=== PATIENT | female | born 1990 | race Hispanic/Latino ===

== ENCOUNTER → 2022-03-17 | Outpatient (CLI) | payer MEDICAID, OTHER ==
[~2022-03-17] MED LIST: PREN-196 PO; PREN1TAB89 PO
== END | disposition home or self-care (01) ==
LOC: RAH 10:52
PROVIDERS: ATTEND Internal Medicine Gastroenterology
DX: R13.10 Dysphagia, unspecified (principal); R63.30 Feeding difficulties, unspecified
CPT/HCPCS: 74230; 92611

== ENCOUNTER 2024-05-20 09:14 | Emergency (ER) | payer MEDICAID ==
[~2024-05-20] VITALS: Ht 165.1 cm; Wt 64.4 kg
[2024-05-20 09:28] VITALS: BP 110/71; PULSE 72; RESP 16; TEMP 98.3; O2SAT 100
--- NOTE | 2024-05-20 09:45 | ERN ---
ED Note History of Present Illness Stated Complaint: PELVIC PAIN IN Chief Complaint: Abdominal Pain in Time Seen by MD: 09:22 Dictation: 33-year-old female presents to the ED for evaluation of pelvic pain onset 2 days ago. Patient reports chills, nausea, headache, but denies any vomiting or any other associated symptoms at this time. Patient had several positive tests at home and mentioned that she had IVF 10 days ago. Last menstrual period was on 05/01/2024. Allergies: Coded Allergies: No Known Allergies (Unverified Allergy, Unknown, 05/17/16) ceftriaxone (Unverified Allergy, Unknown, 08/31/16) tachycaria, muscle aches Home Meds Reported Medications Vit No.124/Iron/FA ( Vitamin Tablet) 1 Each Tablet, 1 EACH PO DAILY, TAB 08/31/16 Vit W-Ca,Fe,FA(<1 mg) ( Vitamins) 1 Each Tablet, 1 EACH PO DAILY, TAB 05/17/16 Past Medical History Past Medical History: No Pertinent History Surgical History: Tonsillectomy, Surgical History Other: BREAST IMPLANTS, NOSE SX, HERNIA LMP: May 01, 2024 : 5 Para: 4 Review of System Dictation Constitutional: Positive for chills,Negative for fever, and weight loss Eyes: Negative for injury, pain,redness, and discharge ENT: Negative for injury,pain or swelling Cardiovascular: Negative for chest pain, palpitations, and edema Respiratory: Negative for shortness of breath, cough, and wheezing, Abdomen/GI: Positive for pelvic pain nausea, Negative for abdominal pain, vomiting, diarrhea, and constipation Back: Negative for injury and pain : Negative for injury, bleeding and discharge MS/Extremity: Negative for injury and deformity Skin: Negative for rash, and discoloration Neuro: Positive for headache, Negative for weakness, numbness, tingling, and seizure Psych: Negative for suicide ideation, homicidal ideation, and hallucinations Initial Vital Sign VS Vital Signs Date Time Temp Pulse Resp B/P (MAP) Pulse Ox O2 Delivery O2 Flow Rate FiO2 05/20/24 09:17 98.2 81 16 119/74 100 Room Air 0 05/20/24 09:28 21 Physical Exam Dictation General: awake, alert, NAD Head/Face: Normocephalic, atraumatic Eyes: PERRL, EOMI, vision at baseline ENT: oral cavity clear, TMs clear, no signs of infection Neck: Trachea midline, supple, no nuchal rigidity Cardiovascular: RRR, normal S1/S2, No MRGs, no JVD Respiratory: CTAB, no respiratory distress, No rales or wheezes Abdomen: Soft, non-tender, non-distended, normal bowel sounds, no guarding or rebound. Skin: Warm, dry, normal turgor, no rash MS/Extremity: Pulses equal, no cyanosis, neurovascular intact, FROM Neuro: COAx4, GCS 15, strength 5/5, CN 2-12 intact, normal cerebellar exam, normal gait, Psych: Normal behavior, mood, and affect normal Results (Laboratory/Radiology) Laboratory/Radiology Laboratory Tests Test 05/20/24 09:25 05/20/24 09:49 Urine Color LIGHT-YELLOW (YELLOW) Urine Appearance CLEAR (CLEAR) Urine pH 6.5 (5.0-8.0) Urine Specific [place] 1.016 (1.001-1.031) Urine Protein NEGATIVE mg/dL (NEGATIVE) Urine Glucose (UA) NEGATIVE mg/dL (NEGATIVE) Urine Ketones NEGATIVE mg/dL (NEGATIVE) Urine Occult Blood NEGATIVE (NEGATIVE) Urine Nitrate NEGATIVE (NEGATIVE) Urine Bilirubin NEGATIVE mg/dL (NEGATIVE) Urine Urobilinogen 0.2 mg/dL (0.2-1.0) Urine Leukocyte Esterase NEGATIVE [place]/uL White Blood Count 4.3 K/uL (4.8-10.8) L Red Blood Count 4.22 MIL/uL (4.00-5.50) Hemoglobin 11.5 g/dL (12.0-16.0) L Hematocrit 35.6 % (36-48) L Mean Corpuscular Volume 84.4 fL (79-99) Mean Corpuscular Hemoglobin 27.3 pg (27.0-33.0) Mean Corpuscular Hemoglobin Concent 32.3 g/dL (32.0-36.0) Red Cell Distribution Width 15.5 % (11.0-15.5) Platelet Count 232 K/uL (130-400) Mean Platelet Volume 10.5 fL (7.5-10.5) Immature Granulocyte % (Auto) 0.7 % (0-1) Neutrophils (%) (Auto) 59.4 % (40.0-77.0) Lymphocytes (%) (Auto) 27.6 % (21.0-51.0) Monocytes (%) (Auto) 6.3 % (3.0-13.0) Eosinophils (%) (Auto) 5.3 % (0.0-8.0) Basophils (%) (Auto) 0.7 % (0.0-5.0) Neutrophils # (Auto) 2.6 K/uL (1.8-7.7) Lymphocytes # (Auto) 1.2 K/uL (1.0-4.8) Monocytes # (Auto) 0.3 K/uL (0.1-1.0) Eosinophils # (Auto) 0.23 K/uL (0.00-0.70) Basophils # (Auto) 0.03 K/uL (0.00-0.20) Absolute Immature Granulocyte (auto 0.03 K/uL (0-1) Nucleated Red Blood Cells 0.0 % (0.0-0.19) Sodium Level 135 mmol/L (136-145) L Potassium Level 4.6 mmol/L (3.5-5.1) Chloride Level 101 mmol/L (101-111) Carbon Dioxide Level 30 mmol/L (21-32) Blood Urea Nitrogen 11 mg/dL (7-18) Creatinine 0.8 mg/dL (0.5-1.0) Glomerular Filtration Rate Calc 98 mL/min (>90) Random Glucose 90 mg/dL (70-105) Total Calcium 8.6 mg/dL (8.5-10.1) Total Bilirubin 0.3 mg/dL (0.2-1.0) Direct Bilirubin < 0.1 mg/dL (0.0-0.3) Aspartate Amino Transf (AST/SGOT) 31 U/L (10-37) Alanine Aminotransferase (ALT/SGPT) 24 U/L (12-78) Alkaline Phosphatase 61 U/L (50-136) Total Protein 7.2 g/dL (6.0-8.3) Albumin 3.9 g/dL (3.5-5.0) Lipase 33 U/L (16-77) Human Chorionic Gonadotropin, Quant 4 mIU/mL (0-5) Labs Reviewed?: Yes ED Course ED Course Orders Procedure Category Date Status Time Hcg,Quantitative LAB 05/20/24 Complete 09:32 Cbc With Differential LAB 05/20/24 Complete 09:32 Hepatic Function Panel LAB 05/20/24 Complete :32 Basic Metabolic Panel LAB 05/20/24 Complete :32 Lipase LAB 05/20/24 Complete :32 Urinalysis Profile LAB 05/20/24 Complete 09:32 Us Pelvic Non-Ob Comp US 05/20/24 Taken 10:44 Vital Signs Date Time Temp Pulse Resp B/P (MAP) Pulse Ox O2 Delivery O2 Flow Rate FiO2 05/20/24 09:28 98.2 72 16 110/71 100 Room Air* 0 21 05/20/24 09:17 98.2 81 16 119/74 100 Room Air 0 Medical Decision Making MDM MDM: Differential diagnosis: Pelvic pain, , threatened AB, miscarriage Previous outside records reviewed: Old ER visits. Need for hospitalization: Patient does not meet criteria for hospitalization. Need for emergency major/minor surgery: No Patient's prior external medical records from other ER visits were reviewed by me as indicated. Prior testing and results from previous visits were reviewed. Prior tests were taken into account with medical decision making and resource utilization, independent historian/historians were used to obtain complete medical history. I independently interpreted the test that were performed, results were reviewed by me and considered findings on radiology if ordered. Medical management and examination interpretation discussions were had by me with other qualified healthcare professionals as indicated for the patient's care. DX & DISP Disposition: Discharge Departure Impression: Primary Impression: Pelvic pain Condition: Stable Referrals: ROLY ZELAYA MD (PCP) I have reviewed, & agreed with my scribe's, documentation. (Entered by Nomi Rasheed, acting as a scribe for Dr. Mays) I personally scribed for JUAN MAYS MD ([email or web address]) on 05/20/24 at 09:45. Electronically submitted by Nomi Rasheed ([email or web address]). I personally scribed for JUAN MAYS MD ([email or web address]) on 05/20/24 at 10:21. Electronically submitted by Nomi Rasheed ([email or web address]). I personally scribed for JUAN MAYS MD ([email or web address]) on 05/20/24 at 10:46. Electronically submitted by Nomi Rasheed ([email or web address]). JUAN MAYS MD May 20, 2024 09:45
[2024-05-20 09:57] LABS: BASOPHILS # (AUTO) 0.03 K/uL (0.00-0.20); BASOPHILS % (AUTO) 0.7 % (0.0-5.0); EOSINOPHILS # (AUTO) 0.23 K/uL (0.00-0.70); EOSINOPHILS % (AUTO) 5.3 % (0.0-8.0); HEMATOCRIT 35.6 % (36-48); IMMATURE GRANULOCYTE ABSOLUTE 0.03 K/uL (0-1); LYMPHOCYTES # (AUTO) 1.2 K/uL (1.0-4.8); LYMPHOCYTES % (AUTO) 27.6 % (21.0-51.0); MEAN CORPUSCULAR HEMOGLOBIN 27.3 pg (27.0-33.0); MEAN CORPUSCULAR HGB CONC 32.3 g/dL (32.0-36.0); MEAN CORPUSCULAR VOLUME 84.4 fL (79-99); MONOCYTES # (AUTO) 0.3 K/uL (0.1-1.0); MONOCYTES % (AUTO) 6.3 % (3.0-13.0); NEUTROPHILS # (AUTO) 2.6 K/uL (1.8-7.7); NEUTROPHILS % (AUTO) 59.4 % (40.0-77.0); PLATELET COUNT (AUTO) 232 K/uL (130-400); RED BLOOD CELL COUNT(AUTO) 4.22 MIL/uL (4.00-5.50); RED CELL DISTRIBUTION WIDTH 15.5 % (11.0-15.5); WHITE BLOOD COUNT (AUTO) 4.3 K/uL (4.8-10.8)
[2024-05-20 10:06] LABS: CARBON DIOXIDE 30 mmol/L (21-32); CHLORIDE 101 mmol/L (101-111); CREATININE 0.8 mg/dL (0.5-1.0); GLOMERULAR FILTR. RATE CALC 98 mL/min (>90); GLUCOSE,RANDOM 90 mg/dL (70-105); POTASSIUM 4.6 mmol/L (3.5-5.1); SODIUM SERUM 135 mmol/L (136-145); UREA NITROGEN, BLOOD 11 mg/dL (7-18)
[2024-05-20 10:15] LABS: ALANINE AMINOTRANSFERASE 24 U/L (12-78); ALBUMIN 3.9 g/dL (3.5-5.0); ASPARTATE AMINOTRANSFERASE 31 U/L (10-37); BILIRUBIN,TOTAL 0.3 mg/dL (0.2-1.0); HCG,QUANTITATIVE 4 mIU/mL (0-5); TOTAL PROTEIN, SERUM 7.2 g/dL (6.0-8.3)
[2024-05-20 10:16] LABS: BILIRUBIN,DIRECT < 0.1 mg/dL (0.0-0.3)
[2024-05-20 10:25] LABS: APPEARANCE,URINE CLEAR (CLEAR); BILIRUBIN,URINE NEGATIVE (NEGATIVE); COLOR,URINE LIGHT-YELLOW (YELLOW); GLUCOSE, URINE (UA) NEGATIVE (NEGATIVE); KETONES,URINE NEGATIVE (NEGATIVE); LEUKOCYTE ESTERASE ,URINE NEGATIVE Leu/uL (NEGATIVE); NITRATE,URINE NEGATIVE (NEGATIVE); OCCULT BLOOD,URINE NEGATIVE (NEGATIVE); PH,URINE 6.5 (5.0-8.0); PROTEIN,URINE NEGATIVE (NEGATIVE); UROBILINOGEN,URINE 0.2 mg/dL (0.2-1.0)
[2024-05-20 10:29] LABS: ADD UA MICROSCOPIC NO
--- NOTE | 2024-05-20 12:00 | HMCIMG ---
US PELVIC NON-OB COMP HISTORY: Pelvic pain COMPARISON: None TECHNIQUE: Transabdominal pelvic ultrasound study was performed. FINDINGS: The uterus measures 9.4 x 3.1 x 5.6 cm. The right ovary measures 4.5 x 3.6 x 3.2 cm. Left ovary is not well visualized. There is complex right ovarian cyst measuring 2.3 x 2.5 x 2.8 cm with possibilities such as ectopic not excluded. Beta-hCG correlation is recommended. No evidence of intrauterine is not seen this time. Endometrial thickness is 6 mm. No free fluid is seen in the cul-de-sac. IMPRESSION: 1. Findings as described above.
== END 2024-05-20 11:57 | disposition home or self-care (01) ==
LOC: EDH 09:14
DX: O26.891 Other specified pregnancy related conditions, first trimester (principal); R10.2 Pelvic and perineal pain; Z88.1 Allergy status to other antibiotic agents; Z90.89 Acquired absence of other organs
CPT/HCPCS: 36415; 76856; 80048; 80076; 81003; 83690; 84702; 85025; 99284

== ENCOUNTER 2024-05-27 20:30 | Emergency (ER) | payer MEDICAID ==
[~2024-05-27] VITALS: Ht 165.1 cm; Wt 64.4 kg
[2024-05-27 20:58] LABS: BASOPHILS # (AUTO) 0.03 K/uL (0.00-0.20); BASOPHILS % (AUTO) 0.3 % (0.0-5.0); EOSINOPHILS # (AUTO) 0.12 K/uL (0.00-0.70); EOSINOPHILS % (AUTO) 1.3 % (0.0-8.0); HEMATOCRIT 37.6 % (36-48); IMMATURE GRANULOCYTE ABSOLUTE 0.03 K/uL (0-1); LYMPHOCYTES # (AUTO) 1.5 K/uL (1.0-4.8); LYMPHOCYTES % (AUTO) 15.7 % (21.0-51.0); MEAN CORPUSCULAR HEMOGLOBIN 27.7 pg (27.0-33.0); MEAN CORPUSCULAR HGB CONC 33.2 g/dL (32.0-36.0); MEAN CORPUSCULAR VOLUME 83.4 fL (79-99); MONOCYTES # (AUTO) 0.3 K/uL (0.1-1.0); MONOCYTES % (AUTO) 3.1 % (3.0-13.0); NEUTROPHILS # (AUTO) 7.5 K/uL (1.8-7.7); NEUTROPHILS % (AUTO) 79.3 % (40.0-77.0); PLATELET COUNT (AUTO) 255 K/uL (130-400); RED BLOOD CELL COUNT(AUTO) 4.51 MIL/uL (4.00-5.50); RED CELL DISTRIBUTION WIDTH 15.6 % (11.0-15.5); WHITE BLOOD COUNT (AUTO) 9.4 K/uL (4.8-10.8)
[2024-05-27 21:05] LABS: CREATININE 0.8 mg/dL (0.5-1.0)
[2024-05-27 21:10] VITALS: BP 128/74; PULSE 77; RESP 20; TEMP 98; O2SAT 99
--- NOTE | 2024-05-27 21:40 | HMCIMG ---
US OB <14 WEEKS REASON: vaginal bleeding approx 5 weeks COMPARISON: None TECHNIQUE: Routine pelvic sonogram was performed. FINDINGS: Uterus is 8.8 x 4.7 x 5.3 cm. Endometrial thickness is 1.2 cm. There is no evidence of an intrauterine gestational sac there are several subcentimeter nabothian cysts on the cervix. There are small cysts or follicles in both ovaries, largest is on the right at 1.4 cm. There are no focal masses. There is no abnormal vascularity. There is no free fluid in the cul-de-sac. IMPRESSION: 1. No evidence of evident intrauterine gestation 2. Several small cysts on each ovary, there is no sonographic evidence of ectopic .
--- NOTE | 2024-05-27 22:04 | ERN ---
General Chief Complaint: OB<20 weeks gest. Stated Complaint: ABDOMINAL PAIN, 5WKS , OB < 20 WKS Time Seen by MD: 20:33 Time Seen by Midlevel: 20:33 Source: patient History of Present Illness Initial Comments Patient is a 33-year-old female presenting to the ER with light vaginal spotting after wiping. Patient states she noticed this prior to arrival. She reports having an artificial insemination performed 15 days ago. Her last hCG quant was performed three days ago and it was 33. She is followed by an OBGYN in [place]. She had an ultrasound done last week which revealed two sacs in the uterus. Patient has no other concerns at this time. Allergies: Coded Allergies: No Known Allergies (Unverified Allergy, Unknown, 05/17/16) ceftriaxone (Unverified Allergy, Unknown, 08/31/16) tachycaria, muscle aches Home Meds Reported Medications Vit No.124/Iron/FA ( Vitamin Tablet) 1 Each Tablet, 1 EACH PO DAILY, TAB 08/31/16 Vit W-Ca,Fe,FA(<1 mg) ( Vitamins) 1 Each Tablet, 1 EACH PO DAILY, TAB 05/17/16 Past Medical History Past Medical History: No Pertinent History Past Surgical History: Tonsillectomy, Surgical History Other: BREAST IMPLANTS, NOSE SX, HERNIA Female( History) : 5 Para: 4 ROS Dictation CONSTITUTIONAL: Negative except for HPI HEAD/FACE: Negative except for HPI EENT: Negative except for HPI RESPIRATORY: Negative except for HPI GASTROINTESTINAL/ABDOMINAL: Negative except for HPI GENITOURINARY: Negative except for HPI MUSCULOSKELETAL: Negative except for HPI INTEGUMENTARY: Negative except for HPI NEUROLOGICAL/PSYCH: Negative except for HPI HEMATOLOGIC/LYMPHATIC: Negative except for HPI All Systems Negative, Except as noted above. 13 point review of systems assessed and all negative except for above. Physical Exam Physical Exam Dictation Vital Signs reviewed General Appearance: Alert, oriented x 3, no acute distress, well developed, nourished. Head and Face: non-traumatic. Eyes: PERRL, pink conjunctivas, eyelid no trauma, anterior chamber with arcus senilis. Ears: Pinnas intact and no signs of trauma or erythema ear canals clear and no discharge TM no erythema Nose: No discharge, no bleeding. Oropharynx: Mouth normal, tongue pink, pharynx clear,no erythema, tonsils no exudates, no abscesses noted, mucous membrane moist Neck: Supple, non-tender, no thyromegaly, no masses, no JVD, no bruits Breast:Deferred Chest:No tenderness, no crepitus, no paradoxical movement, no retractions Lungs:Clear, well-ventilated, symmetric, no rales, no wheezing, no rhonchi, no stridor, good breath sounds bilaterally Heart: Regular rate, regular rhythm, no murmur, no gallops Vascular: no peripheral edema, Abdomen: Soft, positive bowel sounds, nondistended, no guarding, nontender, no rebound, no masses no hepatomegaly, no splenomegaly, no Benjamin's sign, no hernias. Rectal: Deferred Genital: Deferred Neurological: Normal speech, motor function intact, sensory function intact Musculoskeletal: Neck nontender, full range of motion, back nontender, full range of motion, Extremities: nontender, full range of motion Skin: Color pink, dry, no turgor, no rash, no lacerations, no abrasions, no contusions. Lymphatic: Deferred Results Laboratory and Microbiology Lab and Micro Result Laboratory Tests Test 05/27/24 20:50 White Blood Count 9.4 K/uL (4.8-10.8) Red Blood Count 4.51 MIL/uL (4.00-5.50) Hemoglobin 12.5 g/dL (12.0-16.0) Hematocrit 37.6 % (36-48) Mean Corpuscular Volume 83.4 fL (79-99) Mean Corpuscular Hemoglobin 27.7 pg (27.0-33.0) Mean Corpuscular Hemoglobin Concent 33.2 g/dL (32.0-36.0) Red Cell Distribution Width 15.6 % (11.0-15.5) H Platelet Count 255 K/uL (130-400) Mean Platelet Volume 10.2 fL (7.5-10.5) Immature Granulocyte % (Auto) 0.3 % (0-1) Neutrophils (%) (Auto) 79.3 % (40.0-77.0) H Lymphocytes (%) (Auto) 15.7 % (21.0-51.0) L Monocytes (%) (Auto) 3.1 % (3.0-13.0) Eosinophils (%) (Auto) 1.3 % (0.0-8.0) Basophils (%) (Auto) 0.3 % (0.0-5.0) Neutrophils # (Auto) 7.5 K/uL (1.8-7.7) Lymphocytes # (Auto) 1.5 K/uL (1.0-4.8) Monocytes # (Auto) 0.3 K/uL (0.1-1.0) Eosinophils # (Auto) 0.12 K/uL (0.00-0.70) Basophils # (Auto) 0.03 K/uL (0.00-0.20) Absolute Immature Granulocyte (auto 0.03 K/uL (0-1) Nucleated Red Blood Cells 0.0 % (0.0-0.19) Sodium Level 136 mmol/L (136-145) Potassium Level 4.0 mmol/L (3.5-5.1) Chloride Level 101 mmol/L (101-111) Carbon Dioxide Level 28 mmol/L (21-32) Blood Urea Nitrogen 13 mg/dL (7-18) Creatinine 0.8 mg/dL (0.5-1.0) Glomerular Filtration Rate Calc 98 mL/min (>90) Random Glucose 89 mg/dL (70-105) Total Calcium 9.4 mg/dL (8.5-10.1) Human Chorionic Gonadotropin, Quant 198 mIU/mL (0-5) H Labs Reviewed?: Yes MDM MDM: Patient is a 33-year-old female presenting to the ER with light vaginal spotting after wiping. Patient states she noticed this prior to arrival. She reports having an artificial insemination performed 15 days ago. Her last hCG quant was performed three days ago and it was 33. She is followed by an OBGYN in [place]. She had an ultrasound done last week which revealed two sacs in the uterus. Patient has no other concerns at this time. On physical examination patient is in no acute distress. Her abdominal examination is benign. Her hCG quant today is 188 which is trending upward. Her pelvic ultrasound does not show an intrauterine gestation however this may be related to a very early pregn irineo. There are no signs of ectopic . There was no free fluid in the cul-de-sac. Patient is not in any pain. Vital signs are stable. Patient is nontoxic appearing. Patient will be discharged home with supportive management. She was advised to follow up with your OBGYN as scheduled. She is to return to the ER for any new or worsening symptoms Differential diagnosis: Ectopic , 1st trimester , implantation bleeding There are no social concerns with this patient. Prescription drug management Prescriptions will include: None Medical management and examination interpretation discussions were had by me with other qualified healthcare professionals as indicated for the patient's care. ED Course Orders Procedure Category Date Status Time Basic Metabolic Panel LAB 05/27/24 Complete 20:33 Cbc With Differential LAB 05/27/24 Complete 20:33 Hcg,Quantitative LAB 05/27/24 Complete 20:33 *Nursing CPOE 05/27/24 Transmitted Communication: 20:33 Us Ob <14 Weeks US 05/27/24 Resulted 20:33 Vital Signs Date Time Temp Pulse Resp B/P (MAP) Pulse Ox O2 Delivery O2 Flow Rate FiO2 05/27/24 21:10 98.1 77 20 128/74 99 Room Air* 0 21 05/27/24 20:33 98.1 91 16 115/74 99 Room Air 0 [place] [address] [address] IMAGING REPORT Signed PATIENT: DANIELLE CHOI MR#: [id number] : 1990 SEX: F AGE: 33 LOCATION: ED ORDER 33 STATUS: REG ER REPORT#: [id number] SERVICE 32 REASON: vaginal bleeding approx 5 weeks ORDERING PHYSICIAN: ROLY PATEL PROCEDURE: OB <14 - US OB <14 WEEKS US OB <14 WEEKS REASON: vaginal bleeding approx 5 weeks COMPARISON: None TECHNIQUE: Routine pelvic sonogram was performed. FINDINGS: Uterus is 8.8 x 4.7 x 5.3 cm. Endometrial thickness is 1.2 cm. There is no evidence of an intrauterine gestational sac there are several subcentimeter nabothian cysts on the cervix. There are small cysts or follicles in both ovaries, largest is on the right at 1.4 cm. There are no focal masses. There is no abnormal vascularity. There is no free fluid in the cul-de-sac. IMPRESSION: 1. No evidence of evident intrauterine gestation 2. Several small cysts on each ovary, there is no sonographic evidence of ectopic . DICTATED BY: MODESTO YODER MD DATE: 05/27/242133 ELECTRONICALLY SIGNED BY: MODESTO YODER MD DATE: 05/27/242139 DX & DISP Disposition: Discharge Departure Impression: Primary Impression: Positive test Condition: Stable Additional Instructions: Your blood work today is unremarkable. Your hCG quant is 198. Your pelvic ultrasound does not show an intrauterine gestation however this may be related to a very early . There was no evidence of an ectopic . Follow up with your primary care doctor and OBGYN for repeat evaluation. Return to the ER for any new or worsening symptoms Referrals: ROLY ZELAYA MD (PCP) Time of Disposition: 22:03 I have reviewed the case, and I agree with, Diagnosis and Plan I performed the substantive portion of the visit. I have reviewed and personally made and approve the management plan that is documented in the note by myself or the ALEX. I acknowledge for responsibility for the patient's management plan. ROLY PATEL May 27, 2024 22:04
== END 2024-05-27 22:09 | disposition home or self-care (01) ==
LOC: EDH 20:30
DX: N83.201 Unspecified ovarian cyst, right side (principal); R10.2 Pelvic and perineal pain; Z88.1 Allergy status to other antibiotic agents; Z90.89 Acquired absence of other organs
CPT/HCPCS: 36415; 76801; 80048; 84702; 85025; 99284

== ENCOUNTER 2024-08-11 16:48 | Emergency (ER) | payer MEDICAID ==
[~2024-08-11] VITALS: Ht 167.6 cm; Wt 63.5 kg
--- NOTE | 2024-08-11 17:00 | NUR ---
REFER TO TRAUMA FLOW SHEET
[2024-08-11 17:27] LABS: ADD UA MICROSCOPIC YES; APPEARANCE,URINE CLEAR (CLEAR); BILIRUBIN,URINE NEGATIVE (NEGATIVE); COLOR,URINE COLORLESS (YELLOW); GLUCOSE, URINE (UA) NEGATIVE (NEGATIVE); KETONES,URINE NEGATIVE (NEGATIVE); LEUKOCYTE ESTERASE ,URINE NEGATIVE Leu/uL (NEGATIVE); NITRATE,URINE NEGATIVE (NEGATIVE); OCCULT BLOOD,URINE NEGATIVE (NEGATIVE); PH,URINE 6.5 (5.0-8.0); PROTEIN,URINE NEGATIVE (NEGATIVE); UROBILINOGEN,URINE 0.2 mg/dL (0.2-1.0)
[2024-08-11 17:29] LABS: BACTERIA,URINE RARE /HPF (None Seen); RBC,URINE 0-1 /HPF (0-1); SQUAMOUS EPITHELIAL CELL,UR FEW /HPF (0-2); WBC,URINE 0-1 /HPF (0-1)
--- NOTE | 2024-08-11 17:30 | ERN ---
ED Note History of Present Illness Stated Complaint: FALL Chief Complaint: Head, Face, Neck Trauma Time Seen by MD: 16:55 Dictation: Patient is a 34-year-old female who was brought to the emergency department after sustaining a fall from horse. Patient stated that she was trying to right to horse, but the animal became very agitated, patient fell in lose her consciousness. As per family member at bedside stated the patient lost consciousness for 10 -15 seconds. Also reported that the worse fail in the top of the patient. She complains of headache, left ankle pain. Allergies: Coded Allergies: No Known Allergies (Unverified Allergy, Unknown, 05/17/16) ceftriaxone (Unverified Allergy, Unknown, 08/31/16) tachycaria, muscle aches Home Meds Reported Medications Vit No.124/Iron/FA ( Vitamin Tablet) 1 Each Tablet, 1 EACH PO DAILY, TAB 08/31/16 Vit W-Ca,Fe,FA(<1 mg) ( Vitamins) 1 Each Tablet, 1 EACH PO DAILY, TAB 05/17/16 Past Medical History Past Medical History: No Pertinent History Surgical History: Other, Surgical History Other: RHINOPLASTY : 5 Para: 4 RN Note Reviewed/Agreed w/PFSH: Yes Review of System Dictation NEGATIVE EXCEPT PER HPI Constitutional: Negative for fever,chills, and weight loss Eyes: Negative for injury, pain,redness, and discharge ENT: Negative for injury,pain or swelling Cardiovascular: denies chest pain, palpitations, and edema Respiratory: Negative for shortness of breath, cough, and wheezing, Abdomen/GI: Negative for abdominal pain, nausea, vomiting, diarrhea, and constipation Back: Negative for injury and pain : Negative for injury, bleeding and discharge MS/Extremity: Left ankle pain Skin: Negative for rash, and discoloration Neuro: Negative for headache, weakness, numbness, tingling, and seizure Psych: Negative for suicide ideation, homicidal ideation, and hallucinations Head: Reports head pain Initial Vital Sign VS Vital Signs Date Time Temp Pulse Resp B/P (MAP) Pulse Ox O2 Delivery O2 Flow Rate FiO2 08/11/24 16:51 98.8 107 20 130/97 99 Room Air 0 Physical Exam Dictation General: awake, alert, NAD Head/Face: Normocephalic, atraumatic Eyes: PERRL, EOMI, vision at baseline ENT: oral cavity clear, TMs clear, no signs of infection Neck: Trachea midline, supple, no nuchal rigidity Cardiovascular: RRR, normal S1/S2, No MRGs, no JVD Respiratory: CTAB, no respiratory distress, No rales or wheezes Abdomen: Soft, non-tender, non-distended, normal bowel sounds, no guarding or rebound. Skin: Warm, dry, normal turgor, no rash less than 2 cm abrasion right forearm MS/Extremity: Pulses equal, no cyanosis, neurovascular intact, FROM Neuro: COAx4, GCS 15, strength 5/5, CN 2-12 intact, normal cerebellar exam, normal gait, minor swelling of the left ankle Psych: Normal behavior, mood, and affect normal Extremities-trace edema without any palpable cords, Homans sign is negative Results (Laboratory/Radiology) Laboratory/Radiology Laboratory Tests Test 08/11/24 17:16 Urine Color COLORLESS (YELLOW) Urine Appearance CLEAR (CLEAR) Urine pH 6.5 (5.0-8.0) Urine Specific [place] 1.003 (1.001-1.031) Urine Protein NEGATIVE mg/dL (NEGATIVE) Urine Glucose (UA) NEGATIVE mg/dL (NEGATIVE) Urine Ketones NEGATIVE mg/dL (NEGATIVE) Urine Occult Blood NEGATIVE (NEGATIVE) Urine Nitrate NEGATIVE (NEGATIVE) Urine Bilirubin NEGATIVE mg/dL (NEGATIVE) Urine Urobilinogen 0.2 mg/dL (0.2-1.0) Urine Leukocyte Esterase NEGATIVE Imelda/uL Urine RBC 0-1 /HPF (0-1) Urine WBC 0-1 /HPF (0-1) Urine Squamous Epithelial Cells FEW /HPF (0-2) Urine Bacteria RARE /HPF (None Seen) Urine HCG, Qualitative NEGATIVE (NEGATIVE) Labs Reviewed?: Yes ED Course ED Course Orders Procedure Category Date Status Time Ct Head/Brain W/O CT 08/11/24 Resulted Contrast 17:10 Ct Chest/Abd/Pelv W/O CT 08/11/24 Resulted Contrast 17:10 Urinalysis Profile LAB 08/11/24 Complete 17:10 ,Urine Test LAB 08/11/24 Complete 17:10 Ct Cervical Spine W/O CT 08/11/24 Resulted Contrast 17:10 Tibia/Fibula 2vws Lt RAD 08/11/24 Resulted 17:10 Ankle 2vws Lt RAD 08/11/24 Resulted 17:20 Cyclobenzaprine Hcl PHA 08/11/24 Complete (Cyclobenzaprine Hcl 19:00 Ibuprofen 600 Mg PHA 08/11/24 Complete Tablet (Motrin) 19:00 Acetaminophen 500mg PHA 08/11/24 Complete Tab (Tylenol 500mg T 19:00 Current Medications Medications (Trade) Dose Ordered Sig/Cinthia Route PRN Reason Start Time Stop Time Status Last Admin Dose Admin Acetaminophen (TYLenol 500MG TAB) 500 mg ONCE ONCE PO 08/11/24 19:00 08/11/24 19:01 DC Cyclobenzaprine HCl (Cyclobenzaprine HCl) 10 mg ONCE ONCE PO 08/11/24 19:00 08/11/24 19:01 DC Ibuprofen (moTRIN) 600 mg ONCE ONCE PO 08/11/24 19:00 08/11/24 19:01 DC Vital Signs Date Time Temp Pulse Resp B/P (MAP) Pulse Ox O2 Delivery O2 Flow Rate FiO2 08/11/24 16:51 98.8 107 20 130/97 99 Room Air 0 7:00 p.m. patient was signed out to me by a.m. physician. I independently evaluated her. This is a 34-year-old female who was riding a horse as a trial before buying and fell off and sustained closed head injury. She also fell on the left side with ankle pain. No seizure no blood thinners. Vital signs stable at heart rate of 107 blood pressure 130/97. She is alert awake oriented x4 and ambulating without any problems Imaging studies reviewed-CT scan of the head is negative, CT scan of the C-spine no evidence of any fracture, CT chest abdomen and pelvis only evidence of constipation and breast implants TBI fibula x-rays negative for any fracture ankle x-ray-mild soft tissue swelling. Urinalysis is unremarkable I updated the patient and spouse on all the available information and workup so far and plan to discharge her to follow up with her primary care physician Medical Decision Making MDM MDM: Differential diagnosis: Fall off of a horse, closed head injury, concussion, multi trauma with fractures dislocation Rationale: Tests considered and ordered secondary to shared decision making include: Previous outside records reviewed: Old ER visits. Risk of complication and/or morbidity or mortality of patient management: None Medications-Per medication reconciliation Need for hospitalization: Patient does not meet criteria for hospitalization. Need for emergency major/minor surgery: No There are no social concerns with this patient. Prescription drug management Prescriptions will include symptomatic care Patient's prior external medical records from other ER visits were reviewed by me as indicated. Prior testing and results from previous visits were reviewed. Prior tests were taken into account with medical decision making and resource utilization, independent historian/historians were used to obtain complete medical history. I independently interpreted the test that were performed, results were reviewed by me and considered findings on radiology if ordered. Medical management and examination interpretation discussions were had by me with other qualified healthcare professionals as indicated for the patient's care. Problem List Problem List: (1) Animal-rider injured by fall from or being thrown from horse in noncollision accident, initial encounter (2) Closed head injury (3) Left ankle sprain DX & DISP Disposition: Discharge Departure Impression: Primary Impression: Animal-rider injured by fall from or being thrown from horse in noncollision accident, initial encounter Additional Impressions: Closed head injury, Left ankle sprain Condition: Stable Additional Instructions: Patient and the caregiver have been informed of all the diagnostic tests and the imaging conducted during the today's visit to the emergency room and has verbalized understanding of the results I have personally reviewed and interpreted all diagnostic exams performed here in the ER today as well as the vital signs documented by the nursing staff. The patient is now being discharged to home and should follow up with the primary care physician or the specialist as directed by the ER staff. Follow-up with primary care provider in 1 to 2 days. Take medications as directed here in the emergency room. Okay to continue home medications unless otherwise discussed during your visit in the emergency room today. Return to [facility] emergency room if symptoms worsen or if there is no improvement. Call 911 if you need immediate assistance. Take Tylenol or Motrin [id number] as needed and if no contraindications are present. Increase oral hydration. A wound culture or urine culture was ordered here in the emergency room department please follow-up with primary care provider and advise them to get repeat ports from our facility. If you had any Edilberto wrap/splints that were applied here, please do not remove them until you see your primary care or specialty. Education on left ankle splint given. [id number] ibuprofen or Tylenol for pain relief. Patient did not want any narcotics or tramadol Referrals: ROLY ZELAYA MD (PCP) CRISTINA OLVERA MD Aug 11, 2024 17:30 MICHEL ESCOBEDO MD Aug 11, 2024 19:46
--- NOTE | 2024-08-11 18:35 | HMCIMG ---
ANKLE 2VWS LT CLINICAL HISTORY: fall from hose, pain COMPARISON: None TECHNIQUE: AP lateral and oblique images were obtained. FINDINGS: No obvious fracture or dislocation. No joint effusion. The soft tissues appear edematous over the lateral malleolus. No radiopaque foreign bodies. IMPRESSION: Mild soft tissue swelling
--- NOTE | 2024-08-11 18:37 | HMCIMG ---
TIBIA/FIBULA 2VWS LT CLINICAL HISTORY: EJECTED FROM A HORSE COMPARISON: None TECHNIQUE: AP and lateral images were obtained. FINDINGS: No obvious fracture or dislocation. No joint effusion. The soft tissues appear unremarkable. No radiopaque foreign bodies. IMPRESSION: No acute findings.
--- NOTE | 2024-08-11 18:39 | HMCIMG ---
CT HEAD/BRAIN W/O CONTRAST CLINICAL HISTORY: HEAD INJURY COMPARISON: None TECHNIQUE: Multiple sequential axial images of the head were obtained from the base of the skull through vertex. CT was performed with one or more of the following dose reduction techniques: automated exposure control, adjustment of the mA and/or kV according to patient size, or use of iterative reconstruction technique FINDINGS: The brain parenchyma and CSF spaces are unremarkable. The orbital contents, paranasal sinuses and mastoid air cells are within normal limits. The calvarium is intact. IMPRESSION: Normal study
--- NOTE | 2024-08-11 18:40 | HMCIMG ---
CT CERVICAL SPINE W/O CONTRAST CLINICAL HISTORY: HEAD INJURY COMPARISON: None TECHNIQUE: Sequential axial images of cervical spine without contrast and with sagittal and coronal reconstructions. CT was performed with one or more of the following dose reduction techniques: automated exposure control, adjustment of the mA and/or kV according to patient size, or use of iterative reconstruction technique FINDINGS: There is normal alignment of cervical vertebrae. There is no vertebral body height loss or fractures. The prevertebral soft tissue is unremarkable. The dens and periodontic space are within normal limits.The central canal and neural foramen are patent. IMPRESSION: Normal study
--- NOTE | 2024-08-11 19:01 | HMCIMG ---
CT CHEST/ABD/PELV W/O CONTRAST CLINICAL HISTORY: HEAD INJURY COMPARISON: None TECHNIQUE: Multiple sequential axial images of the chest abdomen and pelvis were obtained from the thoracic inlet through upper abdomen. CT was performed with one or more of the following dose reduction techniques: automated exposure control, adjustment of the mA and/or kV according to patient size, or use of iterative reconstruction technique FINDINGS: The lung parenchyma is unremarkable. The mediastinum is free of hematoma or pathologic lymphadenopathy. Incidental note is made of bilateral breast implants. The intra-abdominal pelvic solid and hollow viscera is unremarkable. There is a moderate amount of fecal material in the colon no identified bowel obstruction. There is no free air or free fluid. Uterus is unremarkable. The bony structures are intact. IMPRESSION: Constipation. There is no identified acute trauma. Incidental note is made of bilateral breast implants.
--- NOTE | 2024-08-11 19:45 | NUR ---
c-collar removed by Dr Schmitz
--- NOTE | 2024-08-11 19:50 | NUR ---
PATIENT HAS NO HOME MEDICATIONS
[2024-08-11] MEDS: ibuPROFEN 600 MG TABLET PO ONE (19:52)
[2024-08-11] MEDS: CYCLOBENZAPRINE HCL 10 MG TABLET PO ONE (19:52)
[2024-08-11] MEDS: ketOROlac 30MG VIAL (30MG/ML) IM ONE (19:53)
[2024-08-11] MEDS: acetaMINOPHEN 500 MG TABLET PO ONE (19:53)
--- NOTE | 2024-08-11 20:01 | NUR ---
patient was medicated, patient wants to leave now.
--- NOTE | 2024-08-11 20:04 | NUR ---
patient advised she was just medicated and needs to wait for 30 min to watch for possible reactions. patient did not want to wait. patient given discharge instructions and left with spouse
[2024-08-12 05:51] VITALS: BP 118/72; PULSE 84; RESP 16; TEMP 97.8; O2SAT 99
== END 2024-08-11 20:05 | disposition home or self-care (01) ==
LOC: EDH 16:48
DX: S93.402A Sprain of unspecified ligament of left ankle, initial encounter (principal); S09.90XA Unspecified injury of head, initial encounter; Z88.1 Allergy status to other antibiotic agents; Z98.82 Breast implant status; V80.010A Animal-rider injured by fall from or being thrown from horse in noncollision accident, initial encounter; Y93.52 Activity, horseback riding; Y92.89 Other specified places as the place of occurrence of the external cause; Y99.8 Other external cause status
CPT/HCPCS: 99285; 70450; 29515; 81001; 81025; 73600; 73590; 72125; 71250; 74176; 96372; J1885

== ENCOUNTER 2025-01-31 21:06 | Emergency (ER) | payer MEDICAID ==
[~2025-01-31] VITALS: Ht 165.1 cm; Wt 69.4 kg
--- NOTE | 2025-01-31 21:07 | NUR ---
UA CUP PROVIDED
[2025-01-31 22:21] LABS: IMMATURE GRANULOCYTE ABSOLUTE 0.01 K/uL (0-1); NUCLEATED RED BLOOD CELLS 0.0 % (0.0-0.19); PLATELET COUNT (AUTO) 248 K/uL (130-400); RED BLOOD CELL COUNT(AUTO) 4.48 MIL/uL (4.00-5.50); RED CELL DISTRIBUTION WIDTH 14.6 % (11.0-15.5); WHITE BLOOD COUNT (AUTO) 6.6 K/uL (4.8-10.8)
[2025-01-31 22:34] LABS: CREATININE 0.6 mg/dL (0.5-1.0); GLOMERULAR FILTR. RATE CALC 119.0 mL/min (>90); GLUCOSE,RANDOM 95.0 mg/dL (70-105); SODIUM SERUM 135.0 mmol/L (136-145); UREA NITROGEN, BLOOD 9.0 mg/dL (7-18)
[2025-01-31] MEDS: MAGNESIUM CITRATE 296 ML SOLUTION PO ONE (22:41)
[2025-01-31 22:57] LABS: HCG,QUANTITATIVE 48706.0 mIU/mL (0-5)
--- NOTE | 2025-01-31 23:06 | NUR ---
AMANDA SIBLEY AND AT BEDSIDE.
--- NOTE | 2025-01-31 23:08 | HMCIMG ---
EXAM: US Obstetrical, Complete <14 weeks. CLINICAL HISTORY: Vaginal bleeding during , approximately 5 weeks . TECHNIQUE: Transabdominal imaging of the maternal pelvis and a < 14-week gestation with image documentation. COMPARISON: None provided. FINDINGS: GESTATION: Gestational age by LMP: 5 weeks 6 days (LMP: 12/21/2024) Gestational sac (GS) measurement: 1.6 cm, corresponding to 6 weeks 5 days ??? 4 days [place]-rump length (CRL): 0.27 cm, corresponding to 5 weeks 6 days ??? 4 days heart rate (FHR): 118 bpm (limited views) Yolk sac not seen A gestational sac was identified in the mid-uterine segment. UTERUS: The uterus measures 9.2 x 4.9 x 4.3 cm No myometrial mass ENDOMETRIUM: Normal CERVIX: Closed. Unremarkable RIGHT OVARY: The right ovary measures 2.8 x 1.9 x 2.8 cm, unremarkable LEFT OVARY: The left ovary measures 2.3 x 1.0 x 1.6 cm, unremarkable FREE FLUID: Trace-free fluid noted in the cul-de-sac IMPRESSION: Single viable intrauterine at approximately 5 weeks 6 days by CRL. The gestational sac is present in the mid-uterine segment. heart activity present. Yolk sac not visualized. No acute abnormality. /[place]
[2025-01-31 23:15] LABS: APPEARANCE,URINE CLEAR (CLEAR); GLUCOSE, URINE (UA) NEGATIVE (NEGATIVE); LEUKOCYTE ESTERASE ,URINE NEGATIVE Leu/uL (NEGATIVE); NITRATE,URINE NEGATIVE (NEGATIVE); OCCULT BLOOD,URINE MODERATE (NEGATIVE)
[2025-01-31] MEDS ORDERED: DOCU-116 PO (23:16)
[2025-01-31 23:17] LABS: ADD UA MICROSCOPIC YES
--- NOTE | 2025-01-31 23:17 | ERN ---
General Chief Complaint: OB<20 weeks gest. Stated Complaint: LEG HEAVINESS, CONSTIPATION Time Seen by MD: 21:11 Time Seen by Midlevel: 21:11 Source: patient History of Present Illness Allergies: Coded Allergies: No Known Allergies (Unverified Allergy, Unknown, 05/17/16) ceftriaxone (Unverified Allergy, Unknown, 08/31/16) tachycaria, muscle aches Home Meds Reported Medications Vit No.124/Iron/FA ( Vitamin Tablet) 1 Each Tablet, 1 EACH PO DAILY, TAB 08/31/16 Vit W-Ca,Fe,FA(<1 mg) ( Vitamins) 1 Each Tablet, 1 EACH PO MICHAEL Y, TAB 05/17/16 Past Medical History Past Medical History: No Pertinent History Past Surgical History: Other, Surgical History Other: RHINOPLASTY Female( History) LMP: Dec 21, 2024 : 5 Para: 4 Results Laboratory and Microbiology Lab and Micro Result Laboratory Tests Test 01/31/25 22:13 White Blood Count 6.6 K/uL (4.8-10.8) Red Blood Count 4.48 MIL/uL (4.00-5.50) Hemoglobin 12.4 g/dL (12.0-16.0) Hematocrit 38.0 % (36-48) Mean Corpuscular Volume 84.8 fL (79-99) Mean Corpuscular Hemoglobin 27.7 pg (27.0-33.0) Mean Corpuscular Hemoglobin Concent 32.6 g/dL (32.0-36.0) Red Cell Distribution Width 14.6 % (11.0-15.5) Platelet Count 248 K/uL (130-400) Mean Platelet Volume 9.5 fL (7.5-10.5) Immature Granulocyte % (Auto) 0.2 % (0-1) Neutrophils (%) (Auto) 65.5 % (40.0-77.0) Lymphocytes (%) (Auto) 22.4 % (21.0-51.0) Monocytes (%) (Auto) 5.3 % (3.0-13.0) Eosinophils (%) (Auto) 5.8 % (0.0-8.0) Basophils (%) (Auto) 0.8 % (0.0-5.0) Neutrophils # (Auto) 4.3 K/uL (1.8-7.7) Lymphocytes # (Auto) 1.5 K/uL (1.0-4.8) Monocytes # (Auto) 0.4 K/uL (0.1-1.0) Eosinophils # (Auto) 0.38 K/uL (0.00-0.70) Basophils # (Auto) 0.05 K/uL (0.00-0.20) Absolute Immature Granulocyte (auto 0.01 K/uL (0-1) Nucleated Red Blood Cells 0.0 % (0.0-0.19) Sodium Level 135 mmol/L (136-145) L Potassium Level 3.1 mmol/L (3.5-5.1) L Chloride Level 98 mmol/L (101-111) L Carbon Dioxide Level 29 mmol/L (21-32) Blood Urea Nitrogen 9 mg/dL (7-18) Creatinine 0.6 mg/dL (0.5-1.0) Glomerular Filtration Rate Calc 119 mL/min (>90) Random Glucose 95 mg/dL (70-105) Total Calcium 9.4 mg/dL (8.5-10.1) Human Chorionic Gonadotropin, Quant 30027 mIU/mL (0-5) H ED Course Orders Procedure Category Date Status Time Cbc With Differential LAB 01/31/25 Complete 21:44 Basic Metabolic Panel LAB 01/31/25 Complete 21:44 Hcg,Quantitative LAB 01/31/25 Complete 21:44 Urinalysis Profile LAB 01/31/25 In Process 21:44 Us Ob <14 Weeks US 01/31/25 Taken 21:44 Magnesium Citrate PHA 01/31/25 Complete (Magnesium Citrate) 23:00 Potassium Bicarb/Cit PHA 01/31/25 Complete Ac 25meq (K-Lyte Ta 23:00 Current Medications Medications (Trade) Dose Ordered Sig/Cinthia Route PRN Reason Start Time Stop Time Status Last Admin Dose Admin Magnesium Citrate (Magnesium Citrate) 296 ml ONCE ONCE PO 01/31/25 23:00 01/31/25 23:01 DC 01/31/25 22:41 Potassium Bicarbonate (K-Lyte Tablet Eff 25 Meq Tablet.eff) 50 meq ONCE ONCE PO 01/31/25 23:00 01/31/25 23:01 DC 01/31/25 22:56 Vital Signs Date Time Temp Pulse Resp B/P (MAP) Pulse Ox O2 Delivery O2 Flow Rate FiO2 01/31/25 21:33 98.1 90 16 125/82 98 Room Air* 0 21 01/31/25 21:07 98.2 92 20 128/85 99 Room Air DX & DISP Disposition: Discharge Departure Impression: Primary Impression: First trimester Additional Impression: Hypokalemia Condition: Stable Scripts Docusate Sodium (Colace) 100 Mg Capsule 100 MG PO TID for constipation, #30 CAP 0 Refills Prov: ROLY PATEL 01/31/25 Additional Instructions: Your potassium level today was 3.1. [place] [address]. The remainder of your blood work is unremarkable. Your pelvic ultrasound reveals a gestational sac of five weeks and six days with positive heart tones of 118 beats per minute. Please follow up with your OBGYN as scheduled. Return to the ER for any new or worsening symptoms. Referrals: ROLY ZELAYA MD (PCP) I have reviewed the case, and I agree with, Diagnosis and Plan I performed the substantive portion of the visit. I have reviewed and personally made and approve the management plan that is documented in the note by myself or the ALEX. I acknowledge for responsibility for the patient's management plan. ROLY PATEL Jan 31, 2025 23:17
[2025-01-31 23:19] LABS: SQUAMOUS EPITHELIAL CELL,UR FEW /HPF (0-2)
[2025-01-31 23:29] VITALS: BP 125/79; PULSE 88; RESP 18; TEMP 98.3; O2SAT 98
== END 2025-01-31 23:30 | disposition home or self-care (01) ==
LOC: EDH 21:06
DX: O99.281 Endocrine, nutritional and metabolic diseases complicating pregnancy, first trimester (principal); E87.6 Hypokalemia; R10.2 Pelvic and perineal pain; Z3A.01 Less than 8 weeks gestation of pregnancy; Z88.1 Allergy status to other antibiotic agents
CPT/HCPCS: 36415; 76801; 80048; 81001; 84702; 85025; 99284

== ENCOUNTER 2025-02-07 16:43 | Emergency (ER) | payer MEDICAID ==
[~2025-02-07] VITALS: Ht 165.1 cm; Wt 68.3 kg
[~2025-02-07 16:43] MED LIST changes: +DOCU-116 PO
--- NOTE | 2025-02-07 19:06 | NUR ---
PT CARE ASSUMED AT THIS TIME
[2025-02-07 19:46] LABS: RAPID GROUP A STREP negative (NEGATIVE)
[2025-02-07 19:58] LABS: INFLUENZA TYPE A Negative For Type A (NEGATIVE); INFLUENZA TYPE B Negative For Type B (NEGATIVE)
[2025-02-07 20:02] LABS: COVID19 (SARS ANTIGEN RAPID) PRESUMPTIVE NEGATIVE (NEGATIVE)
--- NOTE | 2025-02-07 20:10 | ERN ---
ED Note History of Present Illness Stated Complaint: ALLERGIC REACTION Chief Complaint: Allergic Reaction Time Seen by MD: 16:48 Time Seen by Midlevel: 16:48 Dictation: The patient is a 34-year-old female with no significant past medical history who reports to be seven weeks who presents to the emergency department with complaints of allergic reaction to progesterone. Patient reports she took it last night and she felt like she was short of breath and her throat was closing. Patient also reports she has nasal congestion. Denies any fevers, denies any abdominal pain or vaginal bleeding. Reports she had similar symptoms the 1st time she took progesterone. Reports her is architect gave it to her because she previously had vaginal bleeding Allergies: Coded Allergies: No Known Allergies (Unverified Allergy, Unknown, 05/17/16) ceftriaxone (Unverified Allergy, Unknown, 08/31/16) tachycaria, muscle aches Home Meds Active Scripts Docusate Sodium (Colace) 100 Mg Capsule, 100 MG PO TID for constipation, #30 CAP 0 Refills Prov:ROLY PATEL 01/31/25 Reported Medications Vit No.124/Iron/FA ( Vitamin Tablet) 1 Each Tablet, 1 EACH PO DAILY, TAB 08/31/16 Vit W-Ca,Fe,FA(<1 mg) ( Vitamins) 1 Each Tablet, 1 EACH PO DAILY, TAB 05/17/16 Past Medical History Past Medical History: No Pertinent History Additional Past Medical Hx: denies pmhx Surgical History: Other, Surgical History Other: breast augmentation, rhinoplasty : 5 Para: 4 RN Note Reviewed/Agreed w/PFSH: Yes Review of System Dictation Constitutional: Negative for fever,chills, and weight loss Eyes: Negative for injury, pain,redness, and discharge ENT: Negative for injury,pain or swelling positive for sore throat Cardiovascular: Negative for chest pain, palpitations, and edema Respiratory: Negative for cough, and wheezing, Abdomen/GI: Negative for abdominal pain, nausea, vomiting, diarrhea, and constipation Back: Negative for injury and pain : Negative for injury, bleeding and discharge MS/Extremity: Negative for injury and deformity Skin: Negative for rash, and discoloration Neuro: Negative for headache, weakness, numbness, tingling, and seizure Psych: Negative for suicide ideation, homicidal ideation, and hallucinations Initial Vital Sign VS Vital Signs Date Time Temp Pulse Resp B/P (MAP) Pulse Ox O2 Delivery O2 Flow Rate FiO2 02/07/25 16:44 98.2 87 16 103/60 98 Room Air 0 02/07/25 16:49 21 Physical Exam Dictation Vital Signs reviewed General Appearance: Alert, oriented x 3, no acute distress, well developed, nourished. Head and Face: non-traumatic. Eyes: PERRL, pink conjunctivas, eyelid no trauma, anterior chamber with arcus se nilis. Ears: Pinnas intact and no signs of trauma or erythema ear canals clear and no discharge TM no erythema Nose: No discharge, no bleeding. Oropharynx: Mouth normal, tongue pink. pharynx clear,no erythema, tonsils no exudates, no abscesses noted, mucous membrane moist Neck: Supple, non-tender, no thyromegaly, no masses, no JVD, no bruits Breast:Deferred Chest:No tenderness, no crepitus, no paradoxical movement, no retractions Lungs:Clear, well-ventilated, symmetric, no rales, no wheezing, no rhonchi, no stridor, good breath sounds bilaterally Heart: Regular rate, regular rhythm, no murmur, no gallops Vascular: no peripheral edema, Abdomen: Soft, positive bowel sounds, nondistended, no guarding, nontender, no rebound, no masses no hepatomegaly, no splenomegaly, no Benjamin's sign, no hernias. Rectal: Deferred Genital: Deferred Neurological: Normal speech, motor function intact, sensory function intact Musculoskeletal: Neck nontender, full range of motion, back nontender, full range of motion, Extremities: nontender, full range of motion Skin: Color pink, dry, no turgor, no rash, no lacerations, no abrasions, no contusions. Lymphatic: Deferred Results (Laboratory/Radiology) Laboratory/Radiology Laboratory Tests Test 02/07/25 19:22 Influenza Type A Antigen Negative For Type A Influenza Type B Antigen Negative For Type B SARS-CoV-2 Antigen (Rapid) PRESUMPTIVE NEGATIVE Group A Streptococcus Rapid negative (NEGATIVE) Labs Reviewed?: Yes ED Course ED Course Orders Procedure Category Date Status Time Covid19 (Sars Antigen LAB 02/07/25 Complete Rapid) 17:07 Influenza Type A & B, LAB 02/07/25 Complete Rapid 17:07 Rapid (Group A Strep) LAB 02/07/25 Complete 17:07 Vital Signs Date Time Temp Pulse Resp B/P (MAP) Pulse Ox O2 Delivery O2 Flow Rate FiO2 02/07/25 16:49 98.2 87 16 103/60 98 Room Air* 0 21 02/07/25 16:44 98.2 87 16 103/60 98 Room Air 0 Medical Decision Making MDM The patient is a 34-year-old female with no significant past medical history who reports to be seven weeks who presents to the emergency department with complaints of allergic reaction to progesterone. Patient reports she took it last night and she felt like she was short of breath and her throat was closing. Patient also reports she has nasal congestion. Denies any fevers, denies any abdominal pain or vaginal bleeding. Reports she had similar symptoms the 1st time she took progesterone. Reports her is architect gave it to her because she previously had vaginal bleeding Serology was negative. Patient reported allergic reaction yesterday but reports she took cetirizine and symptoms improved. On physical exam patient is in no acute distress, nontoxic appearance, stable vital signs, clear lung sounds, no rash or swelling noted. Patient will be discharged to follow up with OBGYN. Differential diagnosis: Allergic reaction, upper respiratory infection, strep throat Need for hospitalization: Patient does not meet criteria for hospitalization. There are no social concerns with this patient. DX & DISP Disposition: Discharge Departure Impression: Primary Impression: Allergic reaction Condition: Stable Additional Instructions: Your laboratory was negative. Please follow up with your primary doctor in 1-2 days. Follow up with the OBGYN. If anything worsens please return to ER. FOLLOW-UP WITH PRIMARY CARE PROVIDER IN 1 TO 2 DAYS. TAKE MEDICATIONS DIRECTED HERE IN THE EMERGENCY ROOM. OKAY TO CONTINUE HOME MEDICATIONS UNLESS OTHERWISE DISCUSSED DURING YOUR VISIT IN THE EMERGENCY ROOM TODAY. RETURN TO YOUR NEAREST EMERGENCY ROOM IF SYMPTOMS WORSEN OR IF THERE IS NO IMPROVEMENT. CALL 911 IF YOU NEED IMMEDIATE ASSISTANCE. TAKE TYLENOL [id number] NEEDED AND IF NO CONTRAINDICATIONS ARE PRESENT. INCREASE ORAL HYDRATION. A WOUND CULTURE OR URINE CULTURE WAS ORDERED HERE IN THE EMERGENCY ROOM DEPARTMENT PLEASE FOLLOW-UP WITH PRIMARY CARE PROVIDER AND ADVISE THEM TO GET REPEAT PORTS FROM OUR FACILITY. IF YOU HAD ANY JENNIE WRAP/SPLINTS THAT WERE APPLIED HERE, PLEASE DO NOT REMOVE THEM UNTIL YOU SEE YOUR PRIMARY CARE OR SPECIALTY. Referrals: ELVIS ZELAYA MD (PCP) Time of Disposition: 20:09 I have reviewed the case, and I agree with, Diagnosis and Plan BRENDAN RODRIGUEZ [facility] Feb 07, 2025 20:10
[2025-02-07 20:24] VITALS: BP 105/69; PULSE 78; RESP 16; TEMP 98.2; O2SAT 100
== END 2025-02-07 20:25 | disposition home or self-care (01) ==
LOC: EDH 16:43
DX: O26.891 Other specified pregnancy related conditions, first trimester (principal); T78.40XA Allergy, unspecified, initial encounter; Z88.1 Allergy status to other antibiotic agents; Z3A.01 Less than 8 weeks gestation of pregnancy; Z20.822 Contact with and (suspected) exposure to COVID-19; Z79.899 Other long term (current) drug therapy; X58.XXXA Exposure to other specified factors, initial encounter
CPT/HCPCS: 87426; 87804; 87880; 99283

== ENCOUNTER 2025-02-14 12:40 | Emergency (ER) | payer MEDICAID ==
[~2025-02-14] VITALS: Ht 165.1 cm; Wt 64.2 kg
--- NOTE | 2025-02-14 13:04 | ERN ---
ED Note History of Present Illness Stated Complaint: HIGH BLOOD PRESSURE AND ABDOMINAL PAIN Chief Complaint: Multiple Complaints Time Seen by MD: 12:45 Dictation: PATIENT IS A 34-YEAR-OLD FEMALE COMING IN TODAY WHO IS APPROXIMATELY EIGHT WEEKS SHE HAS A COUPLE OF COMPLAINTS, 1ST COMPLAINT IS SHE IS HAVING SOME PALPITATIONS ONSET YESTERDAY AND SHE TOOK PROPRANOLOL FROM A DOCTOR SHE HAS OR USED TO HAVE IN [place]. SECOND COMPLAINT IS SHE IS HAVING SOME ABDOMINAL PELVIC PAIN WITHOUT VAGINAL BLEEDING. NO CONTRACTIONS NO FLANK PAIN. , PATIENT OF DR. GEORGE OUT OF [place]. SHE STATES SHE JUST SAW HIM THREE DAYS AGO WAS BUT NOT HAVING THE PALPITATIONS IN AND HE IS NOT AWARE THAT SHE IS TAKING PROPRANOLOL FROM [place]. SHE DENIES ANY CARDIAC HISTORY. Allergies: Coded Allergies: No Known Allergies (Unverified Allergy, Unknown, 05/17/16) ceftriaxone (Unverified Allergy, Unknown, 08/31/16) tachycaria, muscle aches Home Meds Active Scripts Docusate Sodium (Colace) 100 Mg Capsule, 100 MG PO TID for constipation, #30 CAP 0 Refills Prov:ROLY PATEL 01/31/25 Reported Medications Vit No.124/Iron/FA ( Vitamin Tablet) 1 Each Tablet, 1 EACH PO DAILY, TAB 08/31/16 Vit W-Ca,Fe,FA(<1 mg) ( Vitamins) 1 Each Tablet, 1 EACH PO DAILY, TAB 05/17/16 Past Medical History Past Medical History: Anxiety Additional Past Medical Hx: denies pmhx Surgical History: Surgical History Other: breast augmentation, rhinoplasty LMP: Dec 21, 2024 : 5 Para: 4 Aborts: 0 RN Note Reviewed/Agreed w/PFSH: Yes Review of System Dictation CONSTITUTIONAL: NEGATIVE EXCEPT FOR HPI HEAD/FACE: NEGATIVE EXCEPT FOR HPI EENT: NEGATIVE EXCEPT FOR HPI RESPIRATORY: NEGATIVE EXCEPT FOR HPI PALPITATIONS GASTROINTESTINAL/ABDOMINAL: NEGATIVE EXCEPT FOR HPI ABDOMINAL PAIN GENITOURINARY: NEGATIVE EXCEPT FOR HPI MUSCULOSKELETAL: NEGATIVE EXCEPT FOR HPI INTEGUMENTARY: NEGATIVE EXCEPT FOR HPI NEUROLOGICAL/PSYCH: NEGATIVE EXCEPT FOR HPI HEMATOLOGIC/LYMPHATIC: NEGATIVE EXCEPT FOR HPI ALL SYSTEMS NEGATIVE, EXCEPT NOTED ABOVE. 13 POINT REVIEW OF SYSTEMS ASSESSED AND ALL NEGATIVE EXCEPT FOR ABOVE. Initial Vital Sign VS Vital Signs Date Time Temp Pulse Resp B/P (MAP) Pulse Ox O2 Delivery O2 Flow Rate FiO2 02/14/25 12:44 98.1 81 19 102/68 99 Room Air 0 Physical Exam Dictation VITAL SIGNS REVIEWED GENERAL APPEARANCE: ALERT, ORIENTED X 3, NO ACUTE DISTRESS, WELL DEVELOPED, NOURISHED. ANXIOUS HEAD AND FACE: NON-TRAUMATIC. EYES: PERRL, PINK CONJUNCTIVAS, EYELID NO TRAUMA, ANTERIOR CHAMBER WITH ARCUS SENILIS. EARS: PINNAS INTACT AND NO SIGNS OF TRAUMA OR ERYTHEMA EAR CANALS CLEAR AND NO DISCHARGE TM NO ERYTHEMA NOSE: NO DISCHARGE, NO BLEEDING. OROPHARYNX: MOUTH NORMAL, TONGUE PINK, PHARYNX CLEAR,NO ERYTHEMA, TONSILS NO EXUDATES, NO ABSCESSES NOTED, MUCOUS MEMBRANE MOIST NECK: SUPPLE, NON-TENDER, NO THYROMEGALY, NO MASSES, NO JVD, NO BRUITS BREAST:DEFERRED CHEST:NO TENDERNESS, NO CREPITUS, NO PARADOXICAL MOVEMENT, NO RETRACTIONS LUNGS:CLEAR, WELL-VENTILATED, SYMMETRIC, NO RALES, NO WHEEZING, NO RHONCHI, NO STRIDOR, GOOD BREATH SOUNDS BILATERALLY HEART: REGULAR RATE, REGULAR RHYTHM, NO MURMUR, NO GALLOPS VASCULAR: NO PERIPHERAL EDEMA, ABDOMEN: SOFT, POSITIVE BOWEL SOUNDS, NONDISTENDED, NO GUARDING, NONTENDER, NO REBOUND, NO MASSES NO HEPATOMEGALY, NO SPLENOMEGALY, NO MATTHEWS'S SIGN, NO HERNIAS. RECTAL: DEFERRED GENITAL: DEFERRED NEUROLOGICAL: NORMAL SPEECH, MOTOR FUNCTION INTACT, SENSORY FUNCTION INTACT MUSCULOSKELETAL: NECK NONTENDER, FULL RANGE OF MOTION, BACK NONTENDER, FULL RANGE OF MOTION, EXTREMITIES: NONTENDER, FULL RANGE OF MOTION SKIN: COLOR PINK, DRY, NO TURGOR, NO RASH, NO LACERATIONS, NO ABRASIONS, NO CONTUSIONS. LYMPHATIC: DEFERRED Results (Laboratory/Radiology) Laboratory/Radiology Laboratory Tests Test 02/14/25 13:14 02/14/25 14:42 White Blood Count 6.8 K/uL (4.8-10.8) Red Blood Count 4.32 MIL/uL (4.00-5.50) Hemoglobin 12.3 g/dL (12.0-16.0) Hematocrit 35.8 % (36-48) L Mean Corpuscular Volume 82.9 fL (79-99) Mean Corpuscular Hemoglobin 28.5 pg (27.0-33.0) Mean Corpuscular Hemoglobin Concent 34.4 g/dL (32.0-36.0) Red Cell Distribution Width 14.4 % (11.0-15.5) Platelet Count 268 K/uL (130-400) Mean Platelet Volume 10.1 fL (7.5-10.5) Immature Granulocyte % (Auto) 0.6 % (0-1) Neutrophils (%) (Auto) 70.1 % (40.0-77.0) Lymphocytes (%) (Auto) 18.7 % (21.0-51.0) L Monocytes (%) (Auto) 6.3 % (3.0-13.0) Eosinophils (%) (Auto) 3.7 % (0.0-8.0) Basophils (%) (Auto) 0.6 % (0.0-5.0) Neutrophils # (Auto) 4.8 K/uL (1.8-7.7) Lymphocytes # (Auto) 1.3 K/uL (1.0-4.8) Monocytes # (Auto) 0.4 K/uL (0.1-1.0) Eosinophils # (Auto) 0.25 K/uL (0.00-0.70) Basophils # (Auto) 0.04 K/uL (0.00-0.20) Absolute Immature Granulocyte (auto 0.04 K/uL (0-1) Nucleated Red Blood Cells 0.0 % (0.0-0.19) Sodium Level 137 mmol/L (136-145) Potassium Level 4.2 mmol/L (3.5-5.1) Chloride Level 100 mmol/L (101-111) L Carbon Dioxide Level 31 mmol/L (21-32) Blood Urea Nitrogen 7 mg/dL (7-18) Creatinine 0.4 mg/dL (0.5-1.0) L Glomerular Filtration Rate Calc 131 mL/min (>90) Random Glucose 44 mg/dL (70-105) *L Total Calcium 9.4 mg/dL (8.5-10.1) Human Chorionic Gonadotropin, Quant [id number] mIU/mL (0-5) H Whole Blood Glucose 102 MG/DL (70-110) 1405/OB ULTRASOUND DEMONSTRATES VIABLE IUP, SEVEN WEEKS TWO DAYS, HEART TONES 155, SMALL SUBCHORIONIC BLEED NOTED. Labs Reviewed?: Yes EKG: (+) NSR EKG Comment: EKG NORMAL SINUS RHYTHM/HEART RATE 73/AXIS NORMAL/NO ECTOPY ED Course ED Course Orders Procedure Category Date Status Time 12 Lead Ekg Tracing- EKG 02/14/25 Complete Technical 13:01 Cbc With Differential LAB 02/14/25 Complete 13:01 Hcg,Quantitative LAB 02/14/25 Complete 13:01 Us Ob <14 Weeks US 02/14/25 Resulted 13:01 Type And Screen BBK 02/14/25 Complete 13:01 Basic Metabolic Panel LAB 02/14/25 Complete 13:01 Bedside Glucose CPOE 02/14/25 Transmitted Fingerstick 14:33 Vital Signs Date Time Temp Pulse Resp B/P (MAP) Pulse Ox O2 Delivery O2 Flow Rate FiO2 02/14/25 12:44 98.1 81 19 102/68 99 Room Air 0 1505/PATIENT HAD A HYPOGLYCEMIC EPISODE WITH A BLOOD SUGAR OF 44. SHE WAS GIVEN A SANDWICH AND FOOD EAT TO INCLUDE JUICE REPEAT BLOOD SUGAR 102. PATIENT IS HEMODYNAMICALLY STABLE SHE WAS STRONGLY ADVISED NOT TO TAKE ANY MEDICATIONS FROM ANY DR. OTHER THAN HER PROOF PLATE MAKER DOCTOR IN [facility]. SHE IS ALSO AWARE HER CARDIAC PORTION OF HER WORKUP WAS NEGATIVE. Medical Decision Making MDM MDM: DIFFERENTIAL DIAGNOSIS: THREATENED A B/PALPITATIONS/ANXIETY/ELECTROLYTE IMBALANCE/DEHYDRATION/ANXIETY/PALPITATIONS RATIONALE: TESTS CONSIDERED AND ORDERED SECONDARY TO SHARED DECISION MAKING INCLUDE: EKG/LABS/ULTRASOUND PREVIOUS OUTSIDE RECORDS REVIEWED: OLD ER VISITS. RISK OF COMPLICATION AND/OR MORBIDITY OR MORTALITY OF PATIENT MANAGEMENT: NONE MEDICATIONS-PER MEDICATION RECONCILIATION NEED FOR HOSPITALIZATION: PATIENT DOES NOT MEET CRITERIA FOR HOSPITALIZATION. NONE NEED FOR EMERGENCY MAJOR/MINOR SURGERY: NO THERE ARE NO SOCIAL CONCERNS WITH THIS PATIENT. PRESCRIPTION DRUG MANAGEMENT NONE PRESCRIPTIONS WILL INCLUDE SYMPTOMATIC CARE PATIENT'S PRIOR EXTERNAL MEDICAL RECORDS FROM OTHER ER VISITS WERE REVIEWED BY ME INDICATED. PRIOR TESTING AND RESULTS FROM PREVIOUS VISITS WERE REVIEWED. PRIOR TESTS WERE TAKEN INTO ACCOUNT WITH MEDICAL DECISION MAKING AND RESOURCE UTILIZATION, INDEPENDENT HISTORIAN/HISTORIANS WERE USED TO OBTAIN COMPLETE MEDICAL HISTORY. I INDEPENDENTLY INTERPRETED THE TEST THAT WERE PERFORMED, RESULTS WERE REVIEWED BY ME AND CONSIDERED FINDINGS ON RADIOLOGY IF ORDERED. MEDICAL MANAGEMENT AND EXAMINATION INTERPRETATION DISCUSSIONS WERE HAD BY ME WITH OTHER QUALIFIED HEALTHCARE PROFESSIONALS INDICATED FOR THE PATIENT'S CARE. DX & DISP Disposition: Discharge Departure Impression: Primary Impression: Palpitations Additional Impressions: Anxiety reaction, Hypoglycemia, Abdominal pain in Condition: Stable Additional Instructions: FOLLOW-UP WITH PRIMARY CARE PROVIDER IN 1 TO 2 DAYS. TAKE MEDICATIONS DIRECTED HERE IN THE EMERGENCY ROOM. OKAY TO CONTINUE HOME MEDICATIONS UNLESS OTHERWISE DISCUSSED DURING YOUR VISIT IN THE EMERGENCY ROOM TODAY. RETURN TO YOUR NEAREST EMERGENCY ROOM IF SYMPTOMS WORSEN OR IF THERE IS NO IMPROVEMENT. CALL 911 IF YOU NEED IMMEDIATE ASSISTANCE. TAKE [id number] NEED ED AND IF NO CONTRAINDICATIONS ARE PRESENT. INCREASE ORAL HYDRATION. A WOUND CULTURE OR URINE CULTURE WAS ORDERED HERE IN THE EMERGENCY ROOM DEPARTMENT PLEASE FOLLOW-UP WITH PRIMARY CARE PROVIDER AND ADVISE THEM TO GET REPEAT PORTS FROM OUR FACILITY. IF YOU HAD ANY JENNIE WRAP/SPLINTS THAT WERE APPLIED HERE, PLEASE DO NOT REMOVE THEM UNTIL YOU SEE YOUR PRIMARY CARE OR SPECIALTY. TYLENOL ONLY FOR PAIN. DO NOT TAKE ANY OTHER MEDICATIONS EXCEPT THOSE PRESCRIBED BY YOUR PROOF PLATE MAKER DOCTOR OR HE APPROVES OF THOSE. SEE DR. GEORGE IN [place] IN THE NEXT 1-2 DAYS WITHOUT FAIL FOR FOLLOW UP AND MANAGEMENT. Referrals: ELVIS ZELAYA MD (PCP) Time of Disposition: 15:06 I have reviewed the case, and I agree with, Diagnosis and Plan AC TREVINO NP Feb 14, 2025 13:04
--- NOTE | 2025-02-14 13:18 | EKG ---
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
[2025-02-14 13:24] LABS: IMMATURE GRANULOCYTE ABSOLUTE 0.04 K/uL (0-1); NUCLEATED RED BLOOD CELLS 0.0 % (0.0-0.19); PLATELET COUNT (AUTO) 268 K/uL (130-400); RED BLOOD CELL COUNT(AUTO) 4.32 MIL/uL (4.00-5.50); RED CELL DISTRIBUTION WIDTH 14.4 % (11.0-15.5); WHITE BLOOD COUNT (AUTO) 6.8 K/uL (4.8-10.8)
[2025-02-14 14:04] LABS: CREATININE 0.4 mg/dL (0.5-1.0); GLOMERULAR FILTR. RATE CALC 131.0 mL/min (>90); HCG,QUANTITATIVE 281370.0 mIU/mL (0-5); SODIUM SERUM 137.0 mmol/L (136-145); UREA NITROGEN, BLOOD 7.0 mg/dL (7-18)
[2025-02-14 14:10] LABS: GLUCOSE,RANDOM 44.0 mg/dL (70-105)
[2025-02-14 15:00] VITALS: BP 112/65; PULSE 81; RESP 18; TEMP 97.2; O2SAT 98
--- NOTE | 2025-02-14 15:03 | HMCIMG ---
TRANSABDOMINAL AND TRANSVAGINAL PELVIC ULTRASOUND; DATED 02/14/2025 1:56 PM MDT. CLINICAL INDICATION : NO VAGINAL BLEEDING, APPROXIMATE EIGHT WEEKS CRAMPING COMPARISON: None available FINDINGS: Single live intrauterine gestation in the fundal endometrium. No perigestational sac hematoma identified. CRL measures 1.14 cm , corresponds to 7 weeks 2 days. Estimated gestational age is 7 weeks 2 days and RONY is 10/01/2025. cardiac activity and heart rate is 155 beats per minute. There is a anechoic region C near the gestational sac measuring 1.0 x 0.6 x 1.0 cm suggesting of subchorionic bleed. The uterus is anteverted with normal shape. It measures 9 x 6 x 8 cm in its maximum length, anteroposterior and transverse dimensions. The myometrium is homogeneous and there is no evidence of focal or diffuse lesions. The cervix is closed, . Both ovaries appear normal with normal flow on color and Spectral Doppler. The right ovary measures 2 x 1 x 2 cm and the left ovary measures 2 x 2 by 2 cm . No adnexal masses. No free fluid or collections. Urinary bladder appears normal. IMPRESSION: 1. Single live intrauterine gestation 7 weeks 2 days and RONY is 10/01/2025 . 2. Cervix is closed. I have reviewed the images and agree with the findings and conclusions reported above.
== END 2025-02-14 15:20 | disposition home or self-care (01) ==
LOC: EDH 12:40
DX: O99.341 Other mental disorders complicating pregnancy, first trimester (principal); R00.2 Palpitations; O99.281 Endocrine, nutritional and metabolic diseases complicating pregnancy, first trimester; F41.1 Generalized anxiety disorder; R73.9 Hyperglycemia, unspecified; O26.891 Other specified pregnancy related conditions, first trimester; R10.2 Pelvic and perineal pain; R10.9 Unspecified abdominal pain; Z3A.01 Less than 8 weeks gestation of pregnancy; Z88.1 Allergy status to other antibiotic agents
CPT/HCPCS: 36415; 76801; 76816; 80048; 82948; 84702; 85025; 86850; 86900; 86901; 93005; 99284